=== PATIENT | male | born 1970 | race African-American/Black ===

== ENCOUNTER 2017-02-27 08:37 | Emergency (ER) | payer SELFPAY ==
[2017-02-27] MEDS ORDERED: predniSONE 20 MG TAB ONE (09:02)
--- NOTE | 2017-02-27 09:22 | RAD ---
TWO VIEWS CHEST: Comparison: None. History: Asthma flair up with cough. FINDINGS: Two views of the chest show normal sized cardiomediastinal silhouette. There is no evidence of consol idation, mass, or pleural effusion. The bones are unremarkable. IMPRESSION: No evidence of acute cardiopulmonary disease. POS: [facility]
== END 2017-02-27 09:35 | disposition home or self-care (01) ==
LOC: NAV ERS 08:37
DX: J45.21 Mild intermittent asthma with (acute) exacerbation (principal); I10 Essential (primary) hypertension; G47.30 Sleep apnea, unspecified; E66.9 Obesity, unspecified
CPT/HCPCS: 71020; 94640; J7506; J7620

== ENCOUNTER 2018-01-14 05:20 | Emergency (ER) | payer SELFPAY ==
[2018-01-14] MEDS ORDERED: methylPREDNISolone Sod Succ/PF 125 MG/2 ML VIAL ONE (06:16)
[2018-01-14] MEDS ORDERED: hydrALAZINE 20 MG/ML VIAL ONE (06:16)
[2018-01-14] MEDS ORDERED: Aspirin 325 MG TAB ONE (06:18)
[2018-01-14 06:31] LABS: Band 5 % (5-11); Eosinophils 2 % (0-10); Lymphocytes 32 % (21-51); MDiff Complete? YES; Mean Corpuscular Hemoglobin 23.9 pg (27.0-31.0); Mean Corpuscular Volume 77.3 fL (78.0-98.0); Mean Platelet Volume 8.9 fL (7.4-10.4); Monocytes 11 % (0-10); Neutrophil 50 % (42-75); PLT Morphology Comment Appears Adequate; Platelet Count 278 thou/uL (130-400); RBC Distribution Width 14.8 % (11.5-14.5); RBC Morphology Normal; Red Blood Cell (RBC) Count 5.85 mill/uL (4.70-6.10); White Blood Cell (WBC) Count 6.8 thou/uL (4.8-10.8)
[2018-01-14] MEDS ORDERED: Magnesium Sulfate 2 GM/NS 0.9% 50 ML BAG ONE (06:33)
[2018-01-14 06:38] LABS: CKMB 2.7 ng/mL (0-6.6); Troponin I 0.018 ng/mL (< 0.028)
[2018-01-14 06:47] LABS: ALT (SGPT) 22 U/L (8-55); AST (SGOT) 18 U/L (5-34); Albumin 3.8 g/dL (3.5-5.0); Alkaline Phosphatase 75 U/L (40-150); Anion Gap 13 mmol/L (10-20); BUN (Urea Nitrogen) 19 mg/dL (8.9-20.6); Bilirubin, Total 0.3 mg/dL (0.2-1.2); CK (CPK) 230 U/L (30-200); Calc. Creatinine Clearance 0 mL/min (70-130); Calcium 9.7 mg/dL (7.8-10.44); Carbon Dioxide 35 mmol/L (22-29); Chloride 99 mmol/L (98-107); Estimated GFR-MDRD Greater than 90; Globulin 3.6 g/dL (2.4-3.5); Glucose 148 mg/dL (70-105); Potassium 3.8 mmol/L (3.5-5.1); Protein, Total 7.4 g/dL (6.0-8.3); Sodium 143 mmol/L (136-145)
--- NOTE | 2018-01-14 08:13 | RAD ---
SINGLE VIEW CHEST: Date: 01/14/18 COMPARISON: 08/10/17. HISTORY: Shortness of breath. FINDINGS: Single view of the chest shows a normal sized cardiomediastinal silhouette. There is no evidence of c onsolidation, mass, or pleural effusion. The bones are unremarkable. IMPRESSION: No evidence of acute cardiopulmonary disease. POS: [facility]
== END 2018-01-14 07:10 | disposition short-term general hospital (02) ==
LOC: NAV ERS 05:20
DX: J45.909 Unspecified asthma, uncomplicated (principal); I10 Essential (primary) hypertension; F17.220 Nicotine dependence, chewing tobacco, uncomplicated; G47.30 Sleep apnea, unspecified
CPT/HCPCS: 36415; 71045; 80053; 82550; 82553; 84484; 85025; 87804; 93005; 94640; 96365; 96375; J0360; J2930; J3475; J7620